=== PATIENT | female | born 2000 | race African-American/Black ===

== ENCOUNTER → 2020-10-14 | Emergency (ER) | payer OTHER ==
[~2020-10-14] VITALS: Ht 175.3 cm; Wt 65.9 kg
[~2020-10-14] MED LIST: DICLOFENAC SODI50 MG PO
[2020-10-14 15:44] VITALS: BP 131/71; Ht 175.3 cm; Wt 65.9 kg
== END | disposition home or self-care (01) ==
LOC: D.ER 15:22
DX: M25.539 Pain in unspecified wrist (principal)

== ENCOUNTER 2020-10-15 06:08 | Emergency (ER) | payer OTHER ==
[~2020-10-15] VITALS: Ht 175.3 cm; Wt 65.9 kg
[2020-10-15 06:13] VITALS: BP 105/48; Ht 175.3 cm; Wt 65.9 kg
[2020-10-15] MEDS ORDERED: DICLOFENAC SODI50 MG PO (06:20)
== END 2020-10-15 06:40 | disposition home or self-care (01) ==
LOC: D.ER 06:08
DX: M25.532 Pain in left wrist (principal); M25.531 Pain in right wrist